=== PATIENT | female | born 1985 | race Caucasian/White ===

== ENCOUNTER → 2024-12-08 11:13 | Outpatient (REF) | payer BC, SELFPAY | LOC: WDC 11:13 | PROVIDERS: ATTENDING PHYSICIAN Nurse Practitioner Family; FAMILY PHYSICIAN Family Medicine | DX: Z12.31 Encounter for screening mammogram for malignant neoplasm of breast (principal) | CPT/HCPCS: 77063; 77067 ==

== ENCOUNTER 2025-04-08 06:37 | Emergency (ER) | payer BC, SELFPAY ==
[2025-04-08 06:39] VITALS: BP 125/69
--- NOTE | 2025-04-08 08:01 | ED.GENMED ---
History of Present Illness
General
Chief Complaint: Abdominal Pain
Source: patient
Exam Limitations: none
Time Seen by Provider: 04/08/25 07:45
History of Present Illness
History of Present Illness:
39yoF with history of asthma presenting with her for evaluation of flank pain. Patient started to experience back pain and blood in her urine 3 days ago. She was seen by her PCP 2 days ago and was diagnosed with a UTI. She was started on
Macrobid x 5 days. Patient was feeling better during the day yesterday. She started to have worsening pain last night and pain is now severe. Pain is located in the right flank and right lower quadrant. Pain is worse with movement. She reports
nausea but denies any vomiting. She has cold sweats while her pain is severe but denies any fevers. She has not had any further hematuria and is not experiencing dysuria. No previous abdominal surgeries.
Phy Exam
Physical Exam
Physical Exam:
Appears uncomfortable, non-toxic
General Physical Exam
General Presentation: well appearing
General age: appears stated age
General Skin: warm and dry
General Habitus: normal
General Mental: alert
ENT Exam
ENT Exam: normocephalic
Pulmonary Exam
Pulmonary Exam: lungs clear, no respiratory distress, no rales, no crackles, no rhonchi and no wheezing
Gastrointestinal Exam
Gastrointestinal Exam: soft, non distended, no cva tenderness and other (+RLQ tenderness. Abdomen soft, non-distended. No rebound or guarding. No CVA tenderness.)
Neurological Exam
Neurological Exam: alert
Dandy Coma Scale
Eye Opening: Spontaneous
Verbal Response: Oriented
Motor Response: Obeys Commands
GCS Total Score: 15
Musculoskeletal Exam
Musculoskeletal Exam: other (+Tenderness to R lumbar region. No skin changes.)
Skin Exam
Skin Exam: normal color and warm/dry
Psychiatric Exam
Psychiatric Exam: normal mood/affect
Course
Orders/Labs/Results
Orders:
Orders
04/08/25 08:00
CT Abd/pelvis W Iv Cont Urgent
Comment:
Reason For Exam: RLQ pain, R flank pain
0.9% Sodium Chloride 1000 ml [Nss] 1,000 ml IV BOLUS
Ketorolac [Toradol] 15 mg IV NOW STA
Test Result ONCE
04/08/25 08:13
Complete Blood Count/With Diff Urgent
Comprehensive Metabolic Panel Urgent
HCG, Serum Qualitative Screen Urgent
Urinalysis Reflex To Culture Urgent
Date Specimen was Collected: 04/08/25
Time Specimen was Collected: 08:10
Urine Microscopic Reflex Cult Urgent
Urine Culture Urgent
REGI Source: U
Specimen Description:
Date Specimen was Collected: 04/08/25
Time Specimen was Collected: 08:10
04/08/25 10:30
Ketorolac [Toradol] 15 mg IV NOW STA
Abnormal Lab Results
04/08/25
08:13
WBC 11.9 H 10^3/uL
(4.8-10.8)
MCH 31.8 H pg
(27.0-31.0)
Absolute Neuts (auto) 10.6 H 10^3/uL
(1.4-6.5)
Absolute Lymphs (auto) 0.8 L 10^3/uL
(1.2-3.4)
Neutrophils % 88.7 H %
(42.2-75.2)
Lymphocytes % 6.5 L %
(20.5-51.1)
Chloride 109 H mmol/L
(98-107)
Glucose 129 H mg/dl
(70-99)
Calcium 10.6 H mg/dl
(8.4-10.2)
Urine Ketones 2+ A
(Negative)
Ur Occult Blood Reflex 3+ A
(Negative)
Leukocyte Esterase Rfl 1+ A
(Negative)
Urine RBC 16-20 A /HPF
(0-2)
Urine WBC (Reflex) 11-15 A /HPF
(0-5)
Urine Bacteria (Reflex) Few A
(Negative)
Urine Albumin (Reflex) 2+ A
(Neg - Trace)
04/08/25 08:13
04/08/25 08:13
Vital Signs
Initial and Last Documented VS:
Initial Vital Signs
Temp Pulse Resp BP Pulse Ox
98 F 68 16 125/69 99
04/08/25 06:39 04/08/25 06:39 04/08/25 06:39 04/08/25 06:39 04/08/25 06:39
Last Documented Vital Signs
Temp Pulse Resp BP Pulse Ox
98 F 68 16 126/81 100
04/08/25 06:39 04/08/25 06:39 04/08/25 06:39 04/08/25 08:22 04/08/25 08:24
MDM/Problems Addressed
Differential Diagnosis Includes:
39yoF here with R flank/RLQ pain. Started to have back discomfort and hematuria 3 days ago. Started on Macrobid 2 days ago. Worsening pain since last night. VSS. She appears uncomfortable but is nontoxic. No CVA tenderness on exam and there is no
signs of peritonitis. Differential diagnosis includes but is not limited to: Kidney stone, pyelonephritis, UTI, appendicitis, ovarian pathology
Initial ED plan: Check CBC, CMP, hCG, UA, and CT abdomen. IV Toradol and fluid bolus for symptoms.
*Critical Care Note
Total Time (30-74mins, 75-104mins- exclusive of procedures): Not Applicable
Update Note
Update Note:
CT shows a 2mm stone at the R UVJ. UA with 3+ blood. There is 11-15 WBC and few bacteria although 16-20/LPF of squamous epithelial cells present suggesting contaminated sample. She received her urine culture results on her patient portal and culture
from 2 days ago was negative for growth. Renal function normal. Pain controlled on reassessment. No indication for hospitalization. Supportive care discussed including hydration, urine straining, Flomax. There is a sulfa allergy listed on her chart
which upon clarification, patient has never had a sulfa drug but both her parents are allergic so she was told to avoid it. Prescriptions given for oxycodone and Zofran. Advised f/u with urology and ED return precautions discussed including fevers
or uncontrolled symptoms. Patient in agreement with plan and was discharged in stable condition.
ED Attending Note
-
Portions of this chart may have been created with voice recognition software.� Occasional wrong word or��sound alike� substitutions may have occurred due to the inherent limitations of voice recognition software.
Discharge Plan
Departure
Patient Disposition: Home (Routine Discharge)
Date of Disposition: 04/08/25
Time of Disposition: 10:30
Patient with high blood pressure during this ER visit?: No
Discharge Problem:
Calculus of proximal right ureter
Instructions: Kidney Stones (DC), How to Strain Your Urine
Prescriptions:
New
tamsulosin [Flomax] 0.4 mg capsule
0.4 mg PO HS Qty: 7 0RF
ondansetron 4 mg tablet,disintegrating
4 mg PO Q6H PRN (Reason: nausea and vomiting) Qty: 20 0RF
oxycodone 5 mg tablet
5 mg PO Q6H PRN (Reason: Pain) Qty: 12 0RF
Referrals:
Arjun Zheng MD [Active] -
Trip Lynn MD [Family Provider] -
Activity Restrictions/Additional Instructions:
Drink plenty of fluids. Strain your urine and take Flomax until stone has passed.
Take Tylenol 650 mg and ibuprofen 600 mg every 6 hours as needed for pain. Take oxycodone only as needed for severe breakthrough pain.
Please call tomorrow to schedule a follow-up with urology. Return to the ER with any worsening symptoms including uncontrolled pain or fever.
Interventions
Interventions:
*Risk Screen - Suicide Last Done: 04/08/25 06:39
*General Assessment Last Done: 04/08/25 06:39
*Neglect/Abuse Screening Last Done: 04/08/25 06:39
*Nursing Disposition Last Done: 04/08/25 10:51
[facility]njdmbpl[facility] Assessment Last Done: 04/08/25 08:31
Discharge Date and Time
Discharge Date/Time: 04/08/25 10:52
Print Language: PASHTO
[2025-04-08] MEDS: TORADOL 15 MG IV ×2 (08:19→10:44)
[2025-04-08] MEDS: NSS 1000 IV (08:19)
[2025-04-08 08:22] VITALS: BP 126/81
[2025-04-08 08:32] LABS: % Basophils 0.4 % (0-2); % Eosinophils 0.2 % (0-6); % Immature Granulocytes 0.3 % (0-0.5); % Lymphocytes 6.5 % (20.5-51.1); % Monocytes 3.9 % (1.7-9.3); % Neutrophils 88.7 % (42.2-75.2); Absolute Basophils 0.1 10^3/uL (0-0.2); Absolute Lymphocytes 0.8 10^3/uL (1.2-3.4); Absolute Monocytes 0.5 10^3/uL (0.1-0.6); Absolute Neutrophils 10.6 10^3/uL (1.4-6.5); Hemoglobin 14.2 g/dL (12.0-16.0); Mean Corp Hgb Conc. 34.6 g/dL (33.0-37.0); Mean Corpuscular Hgb 31.8 pg (27.0-31.0); Mean Corpuscular Volume 91.7 fL (81.0-99.0); Mean Platelet Volume 10.2 fL (7.4-10.4); Nucleated Red Blood Cells % 0 %; Platelet Count 263 10^3/uL (130-400); Red Blood Cell Count 4.47 10^6/uL (4.20-5.40); Red Cell Dist. Width 12.6 % (11.5-14.5); White Blood Cell Count 11.9 10^3/uL (4.8-10.8)
[2025-04-08 08:38] LABS: Urine Albumin 2+ (Neg - Trace); Urine Bilirubin Negative (Negative); Urine Character Clear (Clear); Urine Color Yellow; Urine Glucose Negative (Negative); Urine Ketone 2+ (Negative); Urine Leukocyte 1+ (Negative); Urine Nitrite Negative (Negative); Urine Occult Blood 3+ (Negative); Urine Specific Gravity 1.025 (<1.030); Urine Urobilinogen Negative (Neg - 1+)
[2025-04-08 08:41] LABS: HCG, Serum Qualitative Screen Negative
[2025-04-08 08:44] LABS: ALT (SGPT) 31 U/L (0-35); AST (SGOT) 23 U/L (14-36); Albumin 4.7 g/dl (3.5-5.0); Alkaline Phosphatase 72 U/L (38-126); Blood Urea Nitrogen 17 mg/dl (7-17); Calcium 10.6 mg/dl (8.4-10.2); Carbon Dioxide 23 mmol/L (22-30); Chloride 109 mmol/L (98-107); Glucose 129 mg/dl (70-99); Potassium 4.5 mmol/L (3.5-5.1); Sodium 140 mmol/L (135-145); Total Bilirubin 0.7 mg/dl (0.2-1.3); Total Protein 6.7 g/dl (6.3-8.2); eGFR > 60.00
[2025-04-08 08:49] LABS: Urine Calcium Oxalate Crystals Present
[2025-04-08 08:50] LABS: Urine Bacteria Few (Negative); Urine Red Blood Cell 16-20 /HPF (0-2); Urine Squamous Cell 16-20 /LPF (Few)
== END 2025-04-08 10:52 | disposition home or self-care (01) ==
LOC: EMR 06:37
PROVIDERS: Physician Assistant; EMERGENCY PHYSICIAN Emergency Medicine; FAMILY PHYSICIAN Family Medicine
DX: N20.1 Calculus of ureter (principal); J45.909 Unspecified asthma, uncomplicated; Z87.440 Personal history of urinary (tract) infections
CPT/HCPCS: 96374; 96376; 96361; 99284; 74177; 80053; 81003; 81015; 84703; 85025; 87086; Q9967

== ENCOUNTER → 2025-05-17 15:53 | Outpatient (REF) | payer BC, SELFPAY | LOC: HWRAD 15:53 | PROVIDERS: ATTENDING PHYSICIAN Specialist; FAMILY PHYSICIAN Family Medicine | DX: N20.0 Calculus of kidney (principal) | CPT/HCPCS: 74018 ==